=== PATIENT | male | born 2005 | race American Indian/Alaskan Native ===

== ENCOUNTER → 2024-08-06 | Outpatient (CLI) | payer OTHER ==
[~2024-08-06] MED LIST: EPIP0.3I2 IM; PRED20TA PO; PROHANCE 279.3MG/ML 15ML VIAL ONE; PROHANCE 279.3MG/ML 5ML VIAL ONE
== END ==
LOC: M PLAIMG 11:19
PROVIDERS: ATTEND Otolaryngology
DX: H91.93 Unspecified hearing loss, bilateral (principal); H70.93 Unspecified mastoiditis, bilateral; J34.9 Unspecified disorder of nose and nasal sinuses
CPT/HCPCS: 70553; A9576